=== PATIENT | male | born 1985 | race Two or more races ===

== ENCOUNTER → 2019-01-06 | Outpatient (REF) | payer OTHER ==
[2019-01-06 22:28] LABS: CHLAMYDIA DNA AMPLIFICATION NEGATIVE (NEGATIVE); GC DNA AMPLIFICATION NEGATIVE (NEGATIVE)
== END ==
LOC: M SFHCLERA 19:30
PROVIDERS: ATTEND Physician Assistant
DX: R30.0 Dysuria (principal)